=== PATIENT | female | born 1975 | race Caucasian/White ===

== ENCOUNTER 2025-04-29 22:01 | Inpatient (IN) | payer MEDICAID ==
[~2025-04-29] VITALS: Ht 160 cm; Wt 63.0 kg
[~2025-04-29 22:01] MED LIST: HYDR-4001 MT; RIVA20TA MT; TRAZ-252 PO
[2025-04-29 23:08] LABS: HEMATOCRIT. 31.6 % (36.0-48.0); HEMOGLOBIN. 9.8 g/dL (12.0-16.0); MEAN PLATELET VOLUME 7.7 fl (7.4-10.4); PLATELET 372 x1000/uL (130-400); RED BLOOD CELL COUNT 3.70 mill/uL (4.2-5.4); RED CELL DISTRIBUTION WIDTH 24.7 % (11.6-14.6)
[2025-04-29 23:18] LABS: EOSINOPHILS % MANUAL 1.0 % (0.0-5.0); LYMPHOCYTES % MANUAL 46.0 % (20.0-60.0); MONOCYTES % MANUAL 6.0 % (2.0-8.0); NEUTROPHILS % MANUAL 47.0 % (45.0-75.0); PLATELET ESTIMATE NORMAL
[2025-04-29 23:20] LABS: CREATININE 0.7 mg/dL (0.6-1.0)
[2025-04-29 23:21] LABS: TROPONIN I HIGH SENSITIVITY 4 ng/L (3.0-34); UREA NITROGEN BLOOD 8 mg/dL (9-23)
[2025-04-29 23:22] LABS: ASPARTATE AMINOTRANSFERASE 36 IU/L (<34)
[2025-04-29 23:23] LABS: BILIRUBIN DIRECT < 0.1 mg/dL (<=3.0); BILIRUBIN TOTAL 0.3 mg/dL (0.1-1.0); PROTEIN TOTAL 7.0 g/dL (6.0-8.3)
[2025-04-30] VITALS (8 sets, daily range): BP systolic 118–151; BP diastolic 68–90; PULSE 70–78; RESP 18–20; TEMP 36.2–36.9; O2SAT 96–100
[2025-04-30] MEDS: ACETAMINOPHEN 325MG TABLET PO ONE (00:56)
[2025-04-30] MEDS: IPRATROPIUM/ALBUTEROL 0.5-3(2.5)MG/3ML NEB HHN ONE (01:00)
[2025-04-30 01:31] LABS: TROPONIN I HIGH SENSITIVITY 5 ng/L (3.0-34)
[2025-04-30] MEDS ORDERED: DOCUSATE SODIUM 100MG CAPSULE PO PRN (06:45)
[2025-04-30] MEDS ORDERED: CLONIDINE 0.1MG TABLET PO PRN (06:45)
[2025-04-30] MEDS ORDERED: ACETAMINOPHEN 325MG TABLET PO PRN (06:45)
[2025-04-30] MEDS ORDERED: ONDANSETRON HCL 4MG/2ML INJ IV PRN (06:45)
[2025-04-30] MEDS ORDERED: IPRATROPIUM/ALBUTEROL 0.5-3(2.5)MG/3ML NEB HHN PRN (06:45)
[2025-04-30 10:16] LABS: *AMPHETAMINES SCREEN URINE NEGATIVE (NEGATIVE); *BARBITURATES SCREEN URINE NEGATIVE (NEGATIVE); *BENZODIAZEPINES SCREEN URINE NEGATIVE (NEGATIVE); *COCAINE SCREEN URINE PRESUMPTIVE POSITIVE (NEGATIVE)
[2025-04-30 10:17] LABS: CANNABINOID URINE SCREEN PRESUMPTIVE POSITIVE (NEGATIVE); ECSTASY MDMA SCREEN URINE CONF.TEST INDICATED (NEGATIVE); METHADONE URINE SCREEN NEGATIVE (NEGATIVE); OPIATES URINE SCREEN NEGATIVE (NEGATIVE); PHENCYCLIDINE URINE SCREEN NEGATIVE (NEGATIVE)
[2025-04-30] MEDS: ACETAMINOPHEN 325MG TABLET PO PRN (10:44)
[2025-04-30] MEDS: IOHEXOL-350 100 ML BOTTLE ONE (13:52)
[2025-04-30] MEDS: TRAZODONE HCL 50MG TABLET PO SCH (20:45)
[2025-04-30] MEDS: IPRATROPIUM/ALBUTEROL 0.5-3(2.5)MG/3ML NEB HHN SCH (21:33)
[2025-04-30] MEDS: BUDESONIDE 0.5MG/2ML NEB HHN SCH (21:34)
[2025-05-01] VITALS (8 sets, daily range): BP systolic 113–140; BP diastolic 58–76; PULSE 70–146; RESP 16–20; TEMP 36.5–36.8; O2SAT 97–99
[2025-05-01 07:57] LABS: BASOPHILS % 1.0 % (0.0-2.0); EOSINOPHILS % 3.1 % (0.0-5.0); HEMATOCRIT. 27.8 % (36.0-48.0); HEMOGLOBIN. 8.6 g/dL (12.0-16.0); LYMPHOCYTES % 35.7 % (20.0-50.0); MEAN PLATELET VOLUME 8.1 fl (7.4-10.4); MONOCYTES % 10.0 % (2.0-8.0); NEUTROPHILS % 50.2 % (40.0-76.0); PLATELET 280 x1000/uL (130-400); RED BLOOD CELL COUNT 3.27 mill/uL (4.2-5.4); RED CELL DISTRIBUTION WIDTH 24.1 % (11.6-14.6)
[2025-05-01 08:09] LABS: TROPONIN I HIGH SENSITIVITY < 4 ng/L (3.0-34)
[2025-05-01 08:11] LABS: CREATININE 0.8 mg/dL (0.6-1.0); UREA NITROGEN BLOOD 10 mg/dL (9-23)
[2025-05-01] MEDS: RIVAROXABAN 20 MG TABLET PO SCH (08:47)
[2025-05-01] MEDS: AMLODIPINE 2.5MG TABLET PO SCH (11:29)
[2025-05-01] MEDS ORDERED: AMLO2.5T45 PO (12:32)
== END 2025-05-01 15:49 | disposition home or self-care (01) | DRG 133 ==
LOC: ER 22:01 → 8WST 04-30 01:00 → EDBEDREQ 04-30 01:07 → EDBEDREQTM 04-30 01:07 → EDBEDREQDT 04-30 01:07 → ENRESERV 04-30 01:36
PROVIDERS: ADMIT Internal Medicine; ATTEND Internal Medicine
DX: J96.21 Acute and chronic respiratory failure with hypoxia (principal); I27.20 Pulmonary hypertension, unspecified; Z99.81 Dependence on supplemental oxygen; J45.901 Unspecified asthma with (acute) exacerbation; D64.9 Anemia, unspecified; F32.A Depression, unspecified; F41.9 Anxiety disorder, unspecified; F14.10 Cocaine abuse, uncomplicated; F12.10 Cannabis abuse, uncomplicated; F16.10 Hallucinogen abuse, uncomplicated; F17.210 Nicotine dependence, cigarettes, uncomplicated; I07.1 Rheumatic tricuspid insufficiency; Z88.5 Allergy status to narcotic agent; Z86.711 Personal history of pulmonary embolism; Z86.718 Personal history of other venous thrombosis and embolism; Z88.0 Allergy status to penicillin; Z90.710 Acquired absence of both cervix and uterus; Z85.42 Personal history of malignant neoplasm of other parts of uterus; Z79.01 Long term (current) use of anticoagulants; Z95.828 Presence of other vascular implants and grafts
CPT/HCPCS: 36415; 71045; 71275; 80048; 80076; 80305; 83880; 84484; 85025; 85379; 93005; 93306; 93970; 94070; 94640; 94664; 98960; 99285; A4606; J7626; Q9967

== ENCOUNTER 2025-06-19 14:55 | Emergency (ER) | payer MEDICAID ==
[~2025-06-19] VITALS: Ht 165.1 cm; Wt 79.0 kg
[~2025-06-19 14:55] MED LIST changes: +AMLO2.5T45 PO; +FOLI-43 MT
[2025-06-19 14:57] VITALS: O2SAT 95
[2025-06-19 16:02] VITALS: BP 139/78; PULSE 62; RESP 16; TEMP 36.9; O2SAT 100
== END 2025-06-19 16:04 | disposition home or self-care (01) ==
LOC: ER 14:55
DX: S01.111D Laceration without foreign body of right eyelid and periocular area, subsequent encounter (principal); J45.909 Unspecified asthma, uncomplicated; Z90.710 Acquired absence of both cervix and uterus; Z79.899 Other long term (current) drug therapy; Z79.01 Long term (current) use of anticoagulants; Z88.5 Allergy status to narcotic agent; Z88.0 Allergy status to penicillin; X58.XXXD Exposure to other specified factors, subsequent encounter
CPT/HCPCS: 99281; 99282